=== PATIENT | male | born 1970 | race Caucasian/White ===

== ENCOUNTER 2019-05-27 07:01 | Day surgery (SDC) | payer OTHER ==
[~2019-05-27] VITALS: Ht 175.3 cm; Wt 88.9 kg
[~2019-05-27 07:01] MED LIST: DOXY100T PO
[2019-05-27] MEDS ORDERED: LACTATED RINGERS 1,000 ML IV SCH (07:19)
[2019-05-27] MEDS ORDERED: FENTANYL PF 250 MCG/5ML ONE (07:25)
[2019-05-27] MEDS ORDERED: MIDAZOLAM 1 MG/ML, 2ML ONE (07:25)
[2019-05-27] MEDS ORDERED: ROPIvacaine/PF 0.2%, 20 ML ONE (07:29)
[2019-05-27] MEDS ORDERED: PROPOFOL 10 MG/ML, 20ML ONE (07:30)
[2019-05-27] MEDS ORDERED: NEOSTIGMINE 1 MG/ML, 10ML ONE (07:30)
[2019-05-27] MEDS ORDERED: ACETAMINOPHEN 500 MG TABLET PO ONE (07:30)
[2019-05-27] MEDS ORDERED: GABAPENTIN 300 MG CAPSULE PO ONE (07:30)
[2019-05-27] MEDS ORDERED: GLYCOPYRROLATE 0.2MG/1ML, 5ML ONE (07:30)
[2019-05-27] MEDS ORDERED: ROCURONIUM 10MG/ML,5ML ONE (07:30)
[2019-05-27] MEDS ORDERED: CEFAZOLIN 1,000 MG ONE (07:30)
[2019-05-27 07:36] VITALS: BP 136/90
[2019-05-27] MEDS ORDERED: LABETALOL 5MG/ML, 20ML IV PRN (09:00)
[2019-05-27] MEDS ORDERED: ONDANSETRON 2MG/ML, 2ML IV PRN (09:00)
[2019-05-27] MEDS ORDERED: hydrALAzine 20 MG/ML, 1ML IV PRN (09:00)
[2019-05-27] MEDS ORDERED: OXYcodone 5 MG/5 ML ORAL.SOL UDC PO PRN (09:00)
[2019-05-27] MEDS ORDERED: MORPHINE SULFATE 4 MG/ML, 1ML IVPush PRN (09:00)
[2019-05-27] MEDS ORDERED: HYDROmorphone 2 MG/ML, 1ML IVPush PRN (09:00)
[2019-05-27] MEDS ORDERED: MEPERIDINE/PF 25MG/ML,1ML IVPush PRN (09:00)
[2019-05-27] MEDS ORDERED: FENTANYL PF 100 MCG/2ML IV PRN (09:00)
[2019-05-27] MEDS ORDERED: KETOROLAC 30 MG/1 ML ONE (09:09)
[2019-05-27] MEDS ORDERED: hydrALAzine 20 MG/ML, 1ML ONE (10:25)
[2019-05-27] MEDS ORDERED: OXYcodone 5 MG/5 ML ORAL.SOL UDC ONE (10:25)
[2019-05-27] MEDS ORDERED: FENTANYL PF 100 MCG/2ML ONE (10:25)
== END 2019-05-27 12:05 | disposition home or self-care (01) ==
LOC: OUT 07:01
PROVIDERS: ATTEND Orthopaedic Surgery
DX: S46.211A Strain of muscle, fascia and tendon of other parts of biceps, right arm, initial encounter (principal); F17.210 Nicotine dependence, cigarettes, uncomplicated; Z79.899 Other long term (current) drug therapy; X58.XXXA Exposure to other specified factors, initial encounter; Y93.89 Activity, other specified; Y92.89 Other specified places as the place of occurrence of the external cause; Y99.8 Other external cause status
CPT/HCPCS: 24342; 73070; J0360; J0690; J1885; J2250; J2704; J2710; J2795; J3010; J7120; 76000